=== PATIENT | male | born 1970 | race African-American/Black ===

== ENCOUNTER 2020-05-12 16:58 | Emergency (ER) | payer OTHER ==
[~2020-05-12] VITALS: Ht 175.3 cm; Wt 85.0 kg
[2020-05-12 17:10] VITALS: BP 139/84
[2020-05-12] MEDS ORDERED: KETOROLAC 60 MG/2 ML VIAL. IM ONE (17:45)
[2020-05-12] MEDS ORDERED: methylPREDNISolone ACETATE 80 MG/ML VIAL. IM ONE (17:45)
[2020-05-12] MEDS ORDERED: CYCLOBENZAPRINE 10 MG TABLET. PO ONE (17:45)
[2020-05-12] MEDS ORDERED: CYCL-331 PO (17:50)
[2020-05-12] MEDS ORDERED: IBUP600T16 PO (17:50)
[2020-05-12] MEDS ORDERED: HYDR-2155 PO (17:50)
--- NOTE | 2020-05-12 17:50 | PHYS DOC ---
Past History Past Medical History: No Pertinent History Past Surgical History: No Surgical History Alcohol Use: Occasionally Adult General Chief Complaint Chief Complaint: SHOULDER INJURY HPI HPI Patient is a 49-year-old male presents emergency department complaining of right upper back pain. Patient states it started last while he was doing PT exercises at work. Patient states that he was doing lifts that he felt a muscle pull in his upper back near his shoulder, then did an exercise where he drug a weight manikin across the ground and felt his shoulder pull even more with increasing pain. Patient states his pain is located at and around his shoulder blade area on the right side. Patient states that he took some Motrin at 8 AM this morning to [id number] 200 mg tablets and noticed his pain go from a 8/10 down to a 4/10 pain on a 1-10 pain scale. Patient denies any blunt trauma to his shoulder or upper back. Patient denies any allergies to medications, patient denies taking any prescription medications at home. Patient denies any numbness or tingling of his upper extremities. Patient denies any midline back pain. Patient denies chest pains, shortness of breath, nausea, vomiting, diarrhea patient denies any other physical complaints or physical concerns. Patient is requesting time off of work to recover. Patient states he was not seen for this injury complaint when it first happened last . Patient thought it would just go away on its own. Review of Systems Review of Systems 14 body systems of review of systems have been reviewed. See HPI for pertinent positives and negative responses, otherwise all other systems are negative, nonpertinent or noncontributory. Allergies Allergies Allergies Coded Allergies Type Severity Reaction Last Updated Verified No Known Drug Allergies 05/12/20 No Physical Exam Physical Exam Constitutional: Well developed, well nourished, no acute distress, non-toxic appearance. HENT: Normocephalic, atraumatic, bilateral external ears normal, oropharynx moist, no oral exudates, nose normal. Eyes: PERRLA, EOMI, conjunctiva normal, no discharge. Neck: Normal range of motion, no tenderness, supple, no stridor. Cardiovascular:Heart rate regular rhythm, no murmur, heart sounds S1-S2. Lungs & Thorax: Bilateral breath sounds clear to auscultation all lung michelle. Abdomen: Bowel sounds normal, soft, no tenderness, no masses, no pulsatile masses. Skin: Warm, dry, no erythema, no rash. Back: No tenderness, no CVA tenderness. Except for tenderness to the right scapular area to palpation and passive range of motion. Positive muscle spasm during exam, no crepitus appreciated, distal right upper extremity cap refill less than 2 seconds, 2+ radial pulse. No subcu air appreciated. Extremities: No tenderness, no cyanosis, no clubbing, ROM intact, no edema. No abnormalities noted of the right shoulder joint, full AROM/PROM. Neurologic: Alert and oriented X 3, normal motor function, normal sensory function, no focal deficits noted. Psychologic: Affect normal, judgement normal, mood normal. Current Patient Data Vital Signs Vital Signs Date Time Temp Pulse Resp B/P (MAP) Pulse Ox O2 Delivery O2 Flow Rate FiO2 05/12/20 17:10 99.0 76 16 139/84 (102) 97 EKG EKG [] Radiology/Procedures Radiology/Procedures [] Heart Score Risk Factors: Risk Factors: DM, Current or recent (<one month) smoker, HTN, HLP, family history of CAD, obesity. Risk Scores: Risk Factors: DM, Current or recent (<one month) smoker, HTN, HLP, family history of CAD, obesity. Course & Med Decision Making Course & Med Decision Making Pertinent Labs and Imaging studies reviewed. (See chart for details) 49-year-old male, vital signs reviewed, presents to the ER with right scapular pain. Physical examination concerning for muscle strain of right upper back, un likely infectious process, unlikely blunt trauma. ED plan: 1 tablet Flexeril 10 mg p.o., 60 mg IM ketorolac, 80 mg IM Depo-Medrol. Will send home with prescriptions for muscle relaxer, pain medications, discussed with patient RICE therapy, will give 2 days off work, follow-up with primary care for ongoing scapular pain, return to ER precautions or concerns. Dragon Disclaimer Dragon Disclaimer This electronic medical record was generated, in whole or in part, using a voice recognition dictation system. Departure Departure: Impression: Primary Impression: Muscle strain of right scapular region Disposition: 01 DC HOME SELF CARE/HOMELESS Condition: GOOD Referrals: PCP,UNKNOWN (PCP) Patient Instructions: Muscle Strain Additional Instructions: Take medications as directed, follow-up with your primary care physician for ongoing aches and pains of your right scapular region, return to the emergency department for worsening symptoms or other concerns. EMERGENCY DEPARTMENT GENERAL DISCHARGE INSTRUCTIONS Thank you for coming to [facility] (ED) today and trusting us with you care. We trust that you had a positivie experience in our Emergency Department. If you wish to speak to the department management, you may call the director at [phone]. YOUR FOLLOW UP INSTRUCTIONS ARE FOLLOWS: 1. Do you have a private Doctor? If you do not have a private doctor, please ask for a resource list of physicians or clinics that may be able to assist you with follow up care. 2. The Emergency Physician has interpreted your x-rays. The X-Ray specialist will also review them. If there is a change in the findings, you will be notified in 48 hours when at all possible. 3. A lab test or culture has been done, your results will be reviewed and you will be notified if you need a change in treatment. ADDITIONAL INSTRUCTIONS AND INFORMATION: 1. Your care today has been supervised by a physician who is specially trained in emergency care. Many problems require more than one evaluation for a complete diagnosis and treatment. We recommend that you schedule your follow up appointment as recommended to ensure complete treatment of you illness or injury. If you are unable to obtain follow up care and continue to have a problem, or if your condition worsens, we recommend that you return to the ED. 2. We are not able to safely determine your condition over the phone nor are we able to give sound medical advice over the phone. For these safety reasons, if you call for medical advice we will ask you to come to the ED for further evaluation. 3. If you have any questions regarding these discharge instructions please call the ED at [phone]. SAFETY INFORMATION: In the interest of safety, wellness, and injury prevention; we encourage you to wear your sealbelt, if you smoke; quite smoking, and we encourage family to use a protective helmet for bicycling and other sporting events that present an increased risk for head injury. IF YOUR SYMPTOMS WORSEN OR NEW SYMPTOMS DEVELOP, OR YOU HAVE CONCERNS ABOUT YOUR CONDITION; OR IF YOUR CONDITION WORSENS WHILE YOU ARE WAITING FOR YOUR FOLLOW UP APPOINTMENT; EITHER CONTACT YOUR PRIMARY CARE DOCTOR, THE PHYSICIAN WHOSE NAME AND NUMBER YOU WERE GIVEN, OR RETURN TO THE ED IMMEDIATELY. Scripts Hydrocodone Bit/Acetaminophen (HYDROCODONE-APAP 5-325 ) 1 Each Tablet 1 TAB PO PRN Q6HRS PRN for PAIN, #6 TAB 0 Refills Prov: CORDELL DUFFY APRN 05/12/20 Ibuprofen (IBUPROFEN) 600 Mg Tablet 600 MG PO TID PRN PRN for PAIN, #20 TAB 0 Refills Prov: CORDELL DUFFY APRN 05/12/20 Cyclobenzaprine Hcl (CYCLOBENZAPRINE HCL) 10 Mg Tablet 1 TAB PO TID PRN PRN for PAIN, #12 TAB 0 Refills Prov: CORDELL DUFFY APRN 05/12/20 Problem Qualifiers Primary Impression: Muscle strain of right scapular region Encounter type: initial encounter Qualified Codes: S46.911A - Strain of unspecified muscle, fascia and tendon at shoulder and upper arm level, right arm, initial encounter CORDELL DUFFY APRN May 12, 2020 17:50
== END 2020-05-12 18:15 | disposition home or self-care (01) ==
LOC: ER 16:58
DX: S46.811A Strain of other muscles, fascia and tendons at shoulder and upper arm level, right arm, initial encounter (principal); X50.0XXA Overexertion from strenuous movement or load, initial encounter; Y93.89 Activity, other specified; Y92.89 Other specified places as the place of occurrence of the external cause; Y99.8 Other external cause status
CPT/HCPCS: 96372; 99284; J1040; J1885